=== PATIENT | female | born 1965 | race Caucasian/White ===

== ENCOUNTER → 2024-10-06 | Day surgery (SDC) | payer OTHER ==
--- NOTE | 2024-10-12 14:02 | MM ---
Reason for Exam: Post Procedure Mammogram. Risk Values: Cris 5 year model risk: 0.8%. NCI Lifetime model risk: 5.3%. Tissue Density: Left: The breasts are heterogeneously dense, which may obscure small masses. Pathology Description: Location: 9 o'clock. Marker Left Behind. Cores: 4 Skin Nicks: 1 Gauge: 13 The procedure of ultrasound guided core biopsy was explained to the patient. Benefits, alternatives, and risks were discussed. An informed consent was then obtained. The patient was placed in supine positioning for imaging and for the procedure. The overlying skin was prepped and draped in usual sterile fashion. Lidocaine buffered with bicarbonate was used as anesthetic into the skin and subcutaneous tissue up to area of concern in the left breast. A geraldine was made with surgical scalpel. Under ultrasound guidance, a 12-gauge vacuum assisted biopsy gun device was used to obtain 4 core samples. Following this, a biopsy clip was left in lesion. The patient tolerated the procedure well without any immediate complication. The patient was kept in the radiology department for short stay after the procedure and then discharged home in stable condition. Postprocedure mammogram: The patient was transferred to mammography for physician ordered post procedure mammogram for clip placement verification. Post procedure mammogram demonstrates appropriate placement of clip. Impression: Successful, uncomplicated ultrasound guided core biopsy of area of concern in the breast, full pathology results to follow. [facility], , 10/06/2024 11:45 AM. Pathology Results: Result: Malignant, Invasive ductal carcinoma. Pathology and radiology were reviewed. Findings are concordant. 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 See Surgical Pathology Cancer Case Summary and Comment. Focal high grade DCIS with calcification present. Overall Assessment: Malignant Assessment: MG diagnostic mammo LT wo CAD. - Left: Known biopsy proven malignancy, BI-RAD 6. Management: Surgical Consultation of the left breast. Electronically signed and approved by: Danny Burnett DO
== END ==
LOC: RADUSWWP 10:13
PROVIDERS: ATTEND Internal Medicine Hematology & Oncology
DX: C50.812 Malignant neoplasm of overlapping sites of left female breast (principal); R92.8 Other abnormal and inconclusive findings on diagnostic imaging of breast
CPT/HCPCS: 88305; 88342; 88341; 77065; 19083; A4648

== ENCOUNTER → 2024-10-22 | Outpatient (CLI) | payer OTHER ==
[2024-10-22 13:36] VITALS: BP 163/87; PULSE 79; RESP 17; TEMP 97.8
--- NOTE | 2024-10-22 14:07 | P.GSCN ---
History of Present Illness Consult date: 10/22/24 Reason for Consult: Left breast invasive ductal carcinoma Requesting physician: Zack Stone History of present illness: Tegan is a 58-year-old female seen in consultation for Dr. Stone regarding a new diagnosis of a left breast invasive ductal carcinoma ER negative FL low positive HER2 negative. The patient has a known diagnosis of atypical ductal hyperplasia/lobular carcinoma in situ/atypical lobular hyperplasia in the right breast following screening mammogram revealing new suspicious right breast calcifications. By report an MRI of both breast did not reveal pathologic changes to suggest malignancy. She has a significant history and that she had a left breast cancer treated in 2013. She had a left partial mastectomy on 06-18-2013 at [facility] [place], Dr. Shah. This revealed a 2 x 1.5 cm grade 2 invasive lobular carcinoma plus LCIS. [place] lymph node biopsy was negative. This was ER/FL positive, HER2 negative. She had radiation therapy to the breast in [place]. She was seen by medical oncology and Oncotype was done and as per the patient was a low score. She was recommended to have tamoxifen but declined. Of significance is the fact that she had a right breast open biopsy in 2011 which was benign She was seen by Dr. Hernandez 09-07-2024 for surveillance but did not want to travel to [place] for breast care. She underwent a bilateral mammogram on 09 15 24. This revealed a new focal asymmetry in the left lateral breast and some grouped calcifications in the right lateral breast posterior depth recommendation was for a left breast ultrasound and right breast stereo biopsy. She underwent a left breast ultrasound in 09 15 24. This revealed at the 9 o'clock position a 0.7 x 0.6 x 0.5 cm hypoechoic irregular area. Ultrasound-guided core biopsy was recommend ed. This was performed on 10 06 24 which was positive for an invasive poorly differentiated ductal carcinoma grade 3 ER negative FL low positive HER2 negative. She declined a stereo biopsy of the right breast. The mammograms were reviewed with Dr. Ayers from radiology who felt that the area in the right breast had already been sampled previously and did not recommend a repeat biopsy. She was seen by Dr. Stone and recommended to have metastatic workup, bilateral breast MRI which she declined, genetic testing she agreed declined the need for any chemotherapy neoadjuvant or adjuvant Her bilateral mammogram and ultrasound of the left breast were personally reviewed and discussed with Dr. Ayers from radiology She had a right breast stero biopsy in 2020 at [facility] [place], and an open biopsy in 2011. She has had two biopsies on the left side and both were cancer. She had genetic testing done through Dr. Bright office last week, results pending. He wanted to do a PET scan but needs CT chest, abd, and pelvis, and bone scan. This is scheduled for Friday. Note medical oncology 7 12 06 reviewed She did not feel anything of concern in either breast. She is not complaining of any nipple discharge or skin changes. She has not had any recent trauma or infection in the breast. Caffeine: green tea extract 1 a day nicotine: none chocolate: none hormones: BCP for about 15 years in the past Family History: maternal grandfather: colon cancer paternal grandfather: lung cancer Hormonal History: menarche: 14 , age at first : 31, breast fed: yes menopause: 56 hormones: none Surgical History: [place] teeth removed Bilateral carpal tunnel Varicose vein ablation left leg 2009 essure implant in the fallopian tubes for control/ left breast lumpectomy and SNB; had to have repeat surgery to clear margins right breast biopsy Medical History: HTN high cholesterol Social History: nicotine: none alcohol: rare drugs: none Review of Systems - Constitutional Reports sweats - EENT Eyes: denies blurred vision Ears: deny: decreased hearing Ears, nose, mouth and throat: Denies dysphagia - Breasts bilateral: as per HPI - Cardiovascular Denies chest pain, Denies shortness of breath - Respiratory Denies cough, Denies 7 - Gastrointestinal Reports as per HPI - Genitourinary Genitourinary: Denies dysuria, Denies hematuria Menstruation: Reports postmenopausal - Musculoskeletal Musculoskeleta Comment(s): aarthritis in her back Reports as per HPI - Integumentary Denies rash, Denies unusual bruising - Neurological Denies headaches, Denies syncope - Psychiatric Reports as per HPI - Endocrine Reports as per HPI - Hematologic/Lymphatic Denies easy bleeding, Denies easy bruising - Allergic/Immunologic Reports seasonal allergies Past Medical History Past Medical History: Cancer, Hyperlipidemia, Hypertension Additional Past Medical History / Comment(s): Left breast cancer 2014 radiation. History of Any Multi-Drug Resistant Organisms: MRSA Year Discovered:: 2011 MDRO Source:: abdomen Past Surgical History: Breast Surgery, Section, Tubal Ligation Additional Past Surgical History / Comment(s): Lumpectomy left breast. Bialt carpal tunnel. Trigger finger bilat surgery. [place] teeth. Several breast biopsy. Varicose vein ablation left leg Past Anesthesia/Blood Transfusion Reactions: Postoperative Nausea & Vomiting (PONV) Past Psychological History: No Psychological Hx Reported Smoking Status: Never smoker Past Alcohol Use History: Rare Past Drug Use History: None Reported Medications and Allergies Home Medications Medication Instructions Recorded Confirmed Type Ezetimibe [Zetia] 10 mg PO DAILY 09/24/24 10/22/24 History Valsartan/Hydrochlorothiazide 1 each PO DAILY 09/24/24 10/22/24 History [Diovan Hct 160-12.5 mg Tab] Allergies Allergy/AdvReac Type Severity Reaction Status Date / Time celecoxib [From Celebrex] Allergy Rash/Hives Verified 10/22/24 13:33 ciprofloxacin [From Cipro] Allergy Rash/Hives Verified 10/22/24 13:33 clindamycin Allergy Rash/Hives Verified 10/22/24 13:33 sulfamethoxazole Allergy Rash/Hives Verified 10/22/24 13:33 [From Bactrim] trimethoprim [From Bactrim] Allergy Rash/Hives Verified 10/22/24 13:33 acetaminophen [From Vicodin] AdvReac Nausea & Verified 10/22/24 13:33 Vomiting hydrocodone [From Vicodin] AdvReac Nausea & Verified 10/22/24 13:33 Vomiting Surgical - Exam Vital Signs Temp Pulse Resp BP Pulse Ox 97.8 F 79 17 163/87 97 10/22/24 13:33 10/22/24 13:33 10/22/24 13:33 10/22/24 13:33 10/22/24 13:33 - General no distress - Eyes normal ocular movement - Neck trachea midline - Respiratory normal respiratory effort - Cardiovascular Rhythm: regular Heart Sounds: normal: S1, S2 - Abdomen Abdomen: soft, non tender, no guarding, no rigid, no rebound - Integumentary normal turgor - Neurologic no disoriented, no combative - Musculoskeletal normal gait - Psychiatric oriented to time, oriented to person, oriented to place, speech is normal, memory intact Breast Exam: BRA: 3X inspection: Right breast larger than left breast, bilateral grade 3 ptosis Palpation: Right breast: Multi positional exam no dominant masses or nodules of concern Right axilla: No adenopathy of concern Left breast: Well-healed scar from prior surgery, ecchymosis at the 7 to 8 o'clock position of the left breast related to recent biopsy no hematoma or infection no dominant masses or nodules of concern Left axilla: No adenopathy of concern Results Recent mammogram and ultrasound personally reviewed and discussed with radiology Assessment and Plan Assessment: Impression: New onset left breast invasive ductal carcinoma T1 N0 M0 ER negative FL low positive HER2 negative G3 Prior left breast invasive lobular carcinoma Questionable right breast atypical ductal hyperplasia pathology results to be obtained from core biopsy done on the right side Questionable microcalcifications right breast appear to have previously been biopsied Plan: Presentation of case at tumor board Appointment with radiation oncology CC: Brooke Hall
== END ==
LOC: WWCWWP 12:50
PROVIDERS: ATTEND Surgery
DX: C50.912 Malignant neoplasm of unspecified site of left female breast (principal); Z17.1 Estrogen receptor negative status [ER-]; Z17.32 Human epidermal growth factor receptor 2 negative status; Z88.0 Allergy status to penicillin; Z88.2 Allergy status to sulfonamides; Z88.6 Allergy status to analgesic agent; Z88.1 Allergy status to other antibiotic agents; Z88.5 Allergy status to narcotic agent

== ENCOUNTER → 2024-10-26 | Outpatient (CLI) | payer OTHER ==
--- NOTE | 2024-10-26 14:33 | CT ---
EXAMINATION TYPE: CT ChestAbdPelvis w con DATE OF EXAM: 10/26/2024 12:15 PM COMPARISON: None. CLINICAL INDICATION: Female, 58 years old with history of C50.112 MALIGNANT NEOPLASM OF CENTRAL PORTI ON OF LEFT; PHH, breast ca Technique: CT of the chest, abdomen, and pelvis after IV contrast. Delayed images through the kidneys . Multiple axial images were obtained. Two-dimensional coronal and sagittal reconstructions were obta ined. Contrast used:100ml mL of Isovue 300 with IV Contrast, Oral contrast used: with Oral Contrast CT DLP: 2725.1 mGycm, Automated exposure control for dose reduction was used. Findings: CHEST: Heart borderline enlarged. No pericardial effusion. Aorta normal caliber with conventional branching anatomy. Postsurgical changes superior left breast. No thoracic lymph adenopathy by CT size criteria. Tiny cutaneous/subcutaneous nodule posterior left upper back measuring 9 mm, suspected tiny sebaceous cyst. Hazy densities and mosaic attenuation throughout the lungs reflecting small airways disease and gener alized atelectasis given the low lung volumes. No tracy consolidation or pleural effusion. ABDOMEN: Liver enlarged at 22.6 cm with low-attenuation suggesting fatty infiltration. Portal venous system is patent. No biliary ductal dilatation. Gallbladder, adrenal glands, left kidney, spleen, and pancreas within normal limits. Benign 1.4 cm cortical cyst posterior lower pole right kidney. However, there is a heterogeneously en hancing 2.6 cm cortical lesion lateral upper pole right kidney. RCC not excluded at this time. No dilated small bowel, free fluid, or free air. No mesenteric or retroperitoneal lymphadenopathy. Normal appendix. Moderate stool burden. No pericolonic inflammatory change. Pelvis: Bladder partially urine distended. Uterus anteverted but with somewhat bulbous/enlarged appearance. T here is seen to be bilaterally short devices. Both ovaries are visualized. No abnormal fluid collecti on in the pelvis or pelvic lymphadenopathy. Bones: Facet arthropathy lower lumbar spine. Mild degenerative disc disease thoracic spine. No osseous destr uctive process. IMPRESSION: 1. Postsurgical changes superior left breast. No findings to suggest metastatic disease at this time. 2. However, there are a couple findings which warrant further evaluation including a suspicious lesio n posterior upper pole right kidney measuring 2.6 cm. RCC remains to be excluded. 3. Uterus also shows a bulbous/enlarged appearance. Consider pelvic ultrasound to ensure normal appea sagar to the endometrium. 4. Incidental: Hepatomegaly at 22.6 cm. Moderate stool burden. Mosaic attenuation in the lungs sugges ting small airways disease. [facility], , 10/26/2024 2:31 PM
--- NOTE | 2024-10-26 21:50 | NM ---
EXAMINATION TYPE: NM bone scan whole body DATE OF EXAM: 10/26/2024 COMPARISON: Correlation CT body same day CLINICAL INDICATION: Female, 58 years old with history of C50.112 MALIGNANT NEOPLASM OF CENTRAL PORTI ON OF LEFT BREAST; TECHNIQUE: Delayed whole-body scanning was performed following the injection of 23.9 mCi Tc 99m MDP. Images acquired 3.5 hours post injection. FINDINGS: Some degenerative tracer activity at the shoulders and at the midfoot/hindfoot regions of both feet. No abnormal distribution of tracer activity otherwise seen in either the axial or appendicular skelet on. IMPRESSION: No scintigraphic evidence for osseous metastatic disease. [facility], Workstation: [id number], 10/26/2024 9:47 PM
== END | disposition home or self-care (01) ==
LOC: RADNMMAIN 10:12
PROVIDERS: ATTEND Internal Medicine Hematology & Oncology
DX: C50.112 Malignant neoplasm of central portion of left female breast (principal); N62 Hypertrophy of breast; C50.412 Malignant neoplasm of upper-outer quadrant of left female breast; Z71.3 Dietary counseling and surveillance; Z98.890 Other specified postprocedural states
CPT/HCPCS: 71260; 74177; 78306; A9503; Q9967

== ENCOUNTER → 2024-11-12 | Outpatient (CLI) | payer OTHER ==
[2024-11-12 13:53] VITALS: BP 164/89; PULSE 68; RESP 17; TEMP 98.1
--- NOTE | 2024-11-12 13:58 | P.GSCN ---
History of Present Illness Consult date: 11/12/24 Reason for Consult: new cancer left breast IDC G3 Requesting physician: Zack Stone History of present illness: History of Present Illness Consult date: 10/22/24 Reason for Consult: Left breast invasive ductal carcinoma Requesting physician: Zack Stone History of present illness: Tegan is a 58-year-old female seen in consultation for Dr. 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 The patient has a known diagnosis of atypical ductal hyperplasia/lobular carcinoma in situ/atypical lobular hyperplasia in the right breast following screening mammogram revealing new suspicious right breast calcifications. By report an MRI of both breast did not reveal pathologic changes to suggest malignancy. She has a significant history and that she had a left breast cancer treated in 2013. She had a left partial mastectomy on 06-18-2013 at [facility], Dr. Shah. This revealed a 2 x 1.5 cm grade 2 invasive lobular carcinoma plus LCIS. [place] lymph node biopsy was negative. This was ER/MT positive, HER2 negative. She had radiation therapy to the breast in [place]. She was seen by medical oncology and Oncotype was done and as per the patient was a low score. She was recommended to have tamoxifen but declined. Of significance is the fact that she had a right breast open biopsy in 2011 which was benign She was seen by Dr. Hernandez 09-07-2024 for surveillance but did not want to travel to [place] for breast care. She underwent a bilateral mammogram on 09 15 24. This revealed a new focal asymmetry in the left lateral breast and some grouped calcifications in the right lateral breast posterior depth recommendation was for a left breast ultrasound and right breast stereo biopsy. She underwent a left breast ultrasound in 09 15 24. This revealed at the 9 o'clock position a 0.7 x 0.6 x 0.5 cm hypoechoic irregular area. Ultrasound-guided core biopsy was recommended. This was performed on 10 06 24 which was positive for an invasive poorly differentiated ductal carcinoma grade 3 ER negative MT low positive HER2 negative. She declined a stereo biopsy of the right breast. The mammograms were reviewed with Dr. Ayers from radiology who felt that the area in the right breast had already been sampled previously and did not recommend a repeat biopsy. She was seen by Dr. Stone and recommended to have metastatic workup, bilateral breast MRI which she declined, genetic testing she agreed declined the need for any chemotherapy neoadjuvant or adjuvant Her bilateral mammogram and ultrasound of the left breast were personally reviewed and discussed with Dr. Ayers from radiology She had a right breast stero biopsy in 2020 at [facility], and an open biopsy in 2011. She has had two biopsies on the left side and both were cancer. She had genetic testing done through Dr. Bright office last week, results pending. He wanted to do a PET scan but needs CT chest, abd, and pelvis, and bone scan. This is scheduled for Friday. Note medical oncology 10 19 24 reviewed She did not feel anything of concern in either breast. She is not complaining of any nipple discharge or skin changes. She has not had any recent trauma or infection in the breast. 11-12-24 Patient's case presented at tumor board on 11-02-2024. Recommendation for metastatic workup/a CT chest abdomen and pelvis was performed and the patient was not noted to have metastatic disease however she did have 1. Lesion in the kidney questionable renal cell carcinoma appointment with urology 2. Enlarged uterus pelvic ultrasound recommended Bone scan no mets noted. 10-26-24 Radiation oncology feels that it will be difficult although potentially possible to do additional radiation if the patient declines mastectomy. Chemotherapy either in the neoadjuvant or adjuvant setting is recommended. Surgical intervention via mastectomy is the recommendation without further treatment surgically of the axilla. I have called the patient and discussed the above with the patient, in the past she had declined chemotherapy and radiation therapy however she states that she just needed additional information. At this time she says that she will await her genetic testing to make a final decision. We have also discussed mastectomy with reconstruction and she is going to consider this. 1. Appointment urology/possible renal cell carcinoma; saw urology on 11-08-24 and an MRI ordered of the kidney, will follow up after this scheduled on 12-03-24 2. Pelvic ultrasound/appointment gynecology; that is scheduled for 11-12-24; did not see a gynocologist 3. Await genetic testing results/ still pending done on 10-22-24 pending 4. Patient declines stereotactic core biopsy right breast 5. obtain results of pathology report from [facility] 6. appointment with radiation oncology on 11-25-24 Caffeine: green tea extract 1 a day nicotine: none chocolate: none hormones: BCP for about 15 years in the past Family History: maternal grandfather: colon cancer paternal grandfather: lung cancer Hormonal History: menarche: 14 , age at first : 31, breast fed: yes menopause: 56 hormones: none Surgical History: [place] teeth removed Bilateral carpal tunnel Varicose vein ablation left leg 2009 essure implant in the fallopian tubes for control/ left breast lumpectomy and SNB; had to have repeat surgery to clear margins right breast biopsy Medical History: HTN high cholesterol Social History: nicotine: none alcohol: rare drugs: none Review of Systems - Constitutional Reports sweats - EENT Eyes: denies blurred vision Ears: deny: decreased hearing Ears, nose, mouth and throat: Denies dysphagia - Breasts bilateral: as per HPI - Cardiovascular Denies chest pain, Denies shortness of breath - Respiratory Denies cough - Gastrointestinal Reports as per HPI - Genitourinary Genitourinary: Denies dysuria, Denies hematuria Menstruation: Reports postmenopausal - Musculoskeletal Musculoskeleta Comment(s): aarthritis in her back Reports as per HPI - Integumentary Denies rash, Denies unusual bruising - Neurological Denies headaches, Denies syncope - Psychiatric Reports as per HPI - Endocrine Reports as per HPI - Hematologic/Lymphatic Denies easy bleeding, Denies easy bruising - Allergic/Immunologic Reports seasonal allergies Past Medical History Past Medical History: Cancer, Hyperlipidemia, Hypertension Additional Past Medical History / Comment(s): Left breast cancer 2014 radiation. History of Any Multi-Drug Resistant Organisms: MRSA Year Discovered:: 2011 MDRO Source:: abdomen Past Surgical History: Breast Surgery, Section, Tubal Ligation Additional Past Surgical History / Comment(s): Lumpectomy left breast. Bialt ca rpal tunnel. Trigger finger bilat surgery. [place] teeth. Several breast biopsy. Varicose vein ablation left leg Past Anesthesia/Blood Transfusion Reactions: Postoperative Nausea & Vomiting (PONV) Past Psychological History: No Psychological Hx Reported Smoking Status: Never smoker Past Alcohol Use History: Rare Past Drug Use History: None Reported Medications and Allergies Home Medications Medication Instructions Recorded Confirmed Type Ezetimibe [Zetia] 10 mg PO DAILY 09/24/24 10/22/24 History Valsartan/Hydrochlorothiazide 1 each PO DAILY 09/24/24 10/22/24 History [Diovan Hct 160-12.5 mg Tab] Allergies Allergy/AdvReac Type Severity Reaction Status Date / Time celecoxib [From Celebrex] Allergy Rash/Hives Verified 10/22/24 13:33 ciprofloxacin [From Cipro] Allergy Rash/Hives Verified 10/22/24 13:33 clindamycin Allergy Rash/Hives Verified 10/22/24 13:33 sulfamethoxazole Allergy Rash/Hives Verified 10/22/24 13:33 [From Bactrim] trimethoprim [From Bactrim] Allergy Rash/Hives Verified 10/22/24 13:33 acetaminophen [From Vicodin] AdvReac Nausea & Verified 10/22/24 13:33 Vomiting hydrocodone [From Vicodin] AdvReac Nausea & Verified 10/22/24 13:33 Vomiting Past Medical History Past Medical History: Cancer, Hyperlipidemia, Hypertension Additional Past Medical History / Comment(s): Left breast cancer 2014 radiation. History of Any Multi-Drug Resistant Organisms: MRSA Year Discovered:: 2011 MDRO Source:: abdomen Past Surgical History: Breast Surgery, Section, Tubal Ligation Additional Past Surgical History / Comment(s): Lumpectomy left breast. Bialt carpal tunnel. Trigger finger bilat surgery. [place] teeth. Several breast biopsy. Varicose vein ablation left leg Past Anesthesia/Blood Transfusion Reactions: Postoperative Nausea & Vomiting (PONV) Past Psychological History: No Psychological Hx Reported Smoking Status: Never smoker Past Alcohol Use History: Rare Past Drug Use History: None Reported Medications and Allergies Home Medications Medication Instructions Recorded Confirmed Type Ezetimibe [Zetia] 10 mg PO DAILY 09/24/24 10/22/24 History Valsartan/Hydrochlorothiazide 1 each PO DAILY 09/24/24 10/22/24 History [Diovan Hct 160-12.5 mg Tab] Allergies Allergy/AdvReac Type Severity Reaction Status Date / Time celecoxib [From Celebrex] Allergy Rash/Hives Verified 10/22/24 13:33 ciprofloxacin [From Cipro] Allergy Rash/Hives Verified 10/22/24 13:33 clindamycin Allergy Rash/Hives Verified 10/22/24 13:33 sulfamethoxazole Allergy Rash/Hives Verified 10/22/24 13:33 [From Bactrim] trimethoprim [From Bactrim] Allergy Rash/Hives Verified 10/22/24 13:33 acetaminophen [From Vicodin] AdvReac Nausea & Verified 10/22/24 13:33 Vomiting hydrocodone [From Vicodin] AdvReac Nausea & Verified 10/22/24 13:33 Vomiting Surgical - Exam - General no distress - Eyes normal ocular movement - ENT no hearing loss - Neck trachea midline - Respiratory normal respiratory effort, clear to auscultation - Cardiovascular Rhythm: regular Heart Sounds: normal: S1, S2 - Integumentary normal turgor - Musculoskeletal normal gait - Psychiatric oriented to time, oriented to person, oriented to place, speech is normal, memory intact Breast Exam: BRA: 3X inspection: Right breast larger than left breast, bilateral grade 3 ptosis Palpation: Right breast: Multi positional exam no dominant masses or nodules of concern Right axilla: No adenopathy of concern Left breast: Well-healed scar from prior surgery, Left axilla: No adenopathy of concern Results CT scan chest abdomen and pelvis from 10 26 24 as well as bone scan from 10 26 24 reviewed Assessment and Plan Assessment: Impression: New onset left breast invasive ductal carcinoma T1 N0 M0 ER negative MT low positive HER2 negative G3 Prior left breast invasive lobular carcinoma Questionable right breast atypical ductal hyperplasia pathology results to be obtained from core biopsy done on the right side Questionable microcalcifications right breast appear to have previously been biopsied Plan: Presentation of case at tumor board done 11-02-24 patient declined right breast stero biopsy Appointment with radiation oncology left breast needle localization lumpectomy and possible oncoplastic tissue transfer medical clearance Dr. Underwood CC: Dr. Stone, Dr. Francis
--- NOTE | 2024-11-12 16:33 | US ---
EXAMINATION TYPE: US pelvis complete transvag DATE OF EXAM: 11/12/2024 COMPARISON: CT 10/26/24 CLINICAL INDICATION: Female, 58 years old with history of ENLARGED PELVIS ON CT [id number]; enlarged lobul ar uterus on prior CT TECHNIQUE: Transvaginal (TV) and Transabdominal (TA) . Transabdominal grayscale sonographic images of the pelvis were acquired. Transvaginal sonographic im ages were medically necessary to better assess the following anatomy: Endometrium Doppler imaging: Not performed. FINDINGS: Date of LMP: Menopause Mar 2023 EXAM MEASUREMENTS: Uterus: 10.5 x 6.3 x 6.6 cm Endometrial Stripe: 0.5 cm Right Ovary: 1.9 x 1.5 x 2.0 cm Left Ovary: Not visualized due to bowel gas. 1. Uterus: Anteverted multiple fibroids, largest appreciable fibroid measures 3.2 x 3.1 x 2.4 cm a t the left lower uterine segment 2. Endometrium: wnl 3. Right Ovary: wnl 4. Left Ovary: Obscured by overlying bowel gas 5. Bilateral Adnexa: Obscured by overlying bowel gas 6. Posterior cul-de-sac: wnl exam limited by habitus, bowel gas, and shadowing from uterine fibroids IMPRESSION: 1. Fibroid changes of the uterus. 2. Nonvisualization of the left ovary due to overlying bowel gas.. [facility], , 11/12/2024 4:30 PM
== END ==
LOC: WWCWWP 13:12
PROVIDERS: ATTEND Surgery
DX: C50.912 Malignant neoplasm of unspecified site of left female breast (principal); Z17.1 Estrogen receptor negative status [ER-]; Z17.32 Human epidermal growth factor receptor 2 negative status; N60.91 Unspecified benign mammary dysplasia of right breast; R68.89 Other general symptoms and signs; Z88.1 Allergy status to other antibiotic agents; Z88.2 Allergy status to sulfonamides; Z88.5 Allergy status to narcotic agent; Z88.6 Allergy status to analgesic agent
CPT/HCPCS: 76830; 76856